=== PATIENT | male | born 1980 | race Caucasian/White ===

== ENCOUNTER 2018-05-05 17:37 | Emergency (ER) | payer MEDICAID ==
--- NOTE | 2018-05-05 21:22 | EDPHY ---
H & P Smoking Status: Never smoked Time Seen by Provider: 05/05/18 21:20 HPI/ROS: CHIEF COMPLAINT: Nose injury HISTORY OF PRESENT ILLNESS: 37-year-old male presents to the emergency department after he fell and injured his nose. The patient states that he was in the steam room at his gym 4 days ago and had a syncopal episode. He apparently fell and hit his nose. He was evaluated by EMS and he declined transport to the hospital. He states that he has felt fine. He has exercise since that time and has had no recurring episodes of syncope. He presents to the emergency department now with continued ongoing congestion his right nose and concerned that he broke his nose. The patient does have a history of a deviated septum since . He has not followed up with an ENT before. He has had no surgeries. He denies neck or back pain. Denies a headache. Denies chest pain or difficulty breathing. Denies dental trauma. He believes his tetanus shot is current. REVIEW OF SYSTEMS: Constitutional: No fever, no chills. Eyes: No double or blurry vision. ENT: No sore throat. Respiratory: No cough, no shortness of breath. Cardiac: No chest pain. Gastrointestinal: No abdominal pain, vomiting or diarrhea. Genitourinary: No dysuria. Musculoskeletal: No neck or back pain. Skin: No rashes. Neurological: No headache. (Stephanie Macdonald) Past Medical/Surgical History: Deviated septum (Stephanie Macdonald) Social History: Single from [place] (Stephanie Macdonald) Physical Exam: General Appearance: Alert, no distress. Mentating normally and answering questions appropriately. Very small superficial abrasion that appears to be healing to the anterior aspect of the nose. Eyes: Pupils equal and round. Extraocular motions are all intact. ENT: Mouth: Mucous membranes moist. No evidence of septal hematoma. No epistaxis. He has mild pain with palpation both over the right and the left nasal bone. No palpable crepitus. No other facial bone tenderness. No dental injury or malocclusion. Respiratory: No wheezing, rhonchi, or rales, lungs are clear to auscultation. Cardiovascular: Regular rate and rhythm. Gastrointestinal: Abdomen is soft and nontender, no masses, no rebound or guarding, bowel sounds normal. Neurological: Alert and oriented x 3, cranial nerves II through XII grossly intact Skin: Warm and dry, no rashes. Musculoskeletal: Nontender to palpate along the cervical, thoracic or lumbar spine. Neck is supple. Extremities: Full range of motion and no peripheral edema. Psychiatric: Patient is oriented X 3, there is no agitation. (Tabby Macdonaldyari Vines) Constitutional: Initial Vital Signs Temperature (C) 36.9 C 05/05/18 17:37 Heart Rate 96 05/05/18 17:37 Respiratory Rate 16 05/05/18 17:37 Blood Pressure 106/72 05/05/18 17:37 O2 Sat (%) 95 05/05/18 17:37 O2 Delivery Mode Room Air Allergies/Adverse Reactions: No Known Allergies Allergy (Unverified 05/05/18 20:38) Home Medications: Medication Instructions Recorded NK [No Known Home Meds] 05/05/18 Medical Decision Making - Diagnostics Imaging: Discussed imaging studies w/ call or contact centre team leader Radiologist - Diagnostics Imaging Results: Imaging Impressions Face CT 05/05/18 20:18 Impression: Facial bones are negative for acute posttraumatic sequela. Specifically, a displaced nasal bone fracture is not seen, however, there is nasal septal deviation towards the right. A preliminary report was called to the Emergency Department. ED Course/Re-evaluation: This patient was seen during downtime. 37-year-old male presents with concerns of nasal bone fracture and chronic congestion since he fell injuring his nose 4 days ago. The patient did have a syncopal episode and has not had any recurring syncopal episode since that time. He states he does not want any blood tests done or any EKG or any other tests done. He is requesting imaging of his face. I explained to the patient in great detail that clinically he could have a nasal bone fracture and since he does not have any other palpable facial bone tenderness, I do not think imaging is indicated. The patient is adamant that he obtain imaging since he has insurance that only allows him to be seen for emergency room visits. I discussed the pros and cons of CT imaging of his facial bones including radiation exposure the patient requests CT scan. CT imaging reveals no evidence of fracture but does have significant deviated septum. Patient was given ENT referral. He was encouraged to return if he had any other concerns. (Stephanie Macdonald) I did not see this patient while he was in the emergency department. However his care was discussed with the PA while the patient was in the department. I agree with treatment plan and management (Celio Matt) Differential Diagnosis: Syncope including but not limited to vasovagal syncope, arrhythmia, dehydration , and blood loss. Facial pain including but not limited to facial bone fracture, intracranial bleed, septal hematoma, deviated septum (Stephanie Macdonald) Departure - Departure Disposition: Home, Routine, Self-Care Clinical Impression: Deviated septum Contusion, nose Qualifiers: Encounter type: initial encounter Qualified Code(s): S00.33XA - Contusion of nose, initial encounter Condition: Good Instructions: Nasal Contusion (ED) Additional Instructions: You do not have any evidence of fracture on imaging today. You do have evidence of deviated septum. You should have close follow-up with Ear Nose and Throat doctor on-call as discussed. Cool compresses. Return to the emergency department if you developed headache, vomiting, altered mental status, or any other concerns. Referrals: Anurag De La Paz MD [Medical Doctor] - 5-7 days, call for appt. (ENT on-call)
[2018-05-05 21:28] VITALS: BP 123/74
== END 2018-05-05 21:21 | disposition home or self-care (01) ==
DX: S00.33XA Contusion of nose, initial encounter (principal); J34.2 Deviated nasal septum; W19.XXXA Unspecified fall, initial encounter